=== PATIENT | female | born 1930 | race Caucasian/White ===

== ENCOUNTER 2020-01-22 19:17 | Inpatient (IN) ==
[2020-01-22] MEDS ORDERED: Acetaminophen 325 MG TABLET PO PRN (21:26)
[2020-01-22] MEDS ORDERED: Ondansetron 4 MG/2 ML VIAL IVP PRN (21:26)
[2020-01-22] MEDS ORDERED: Naloxone 0.4 MG/ML INJ IVP PRN (21:26)
[2020-01-22 22:52] LABS: BUN/Creatinine Ratio 44 (6-26); Blood Urea Nitrogen 31 mg/dL (8-23); Calcium 7.9 mg/dL (8.6-10.3); Carbon Dioxide 23 mEq/L (23-29); Chloride 103 mEq/L (98-107); Glucose 93 mg/dL (70-105); Osmolality,Calculated 280 (280-300); Potassium 3.3 mEq/L (3.5-5.1); Sodium 132 mEq/L (136-145); eGFR For African Americans > 60 (> 60); eGFR For Non-African Americans > 60 (> 60)
[2020-01-22 22:57] LABS: Adenovirus Not Detected (Not Detect); Bordetella Pertussis Not Detected (Not Detect); Chlamydophila pneumoniae Not Detected (Not Detect); Coronavirus 229E Not Detected (Not Detect); Coronavirus HKU1 Not Detected (Not Detect); Coronavirus NL63 Not Detected (Not Detect); Coronavirus OC43 Not Detected (Not Detect); Human Metapneumovirus Not Detected (Not Detect); Human Rhinovirus/Enterovirus Not Detected (Not Detect); Influenza A Subtype 2009 H1 Not Detected (Not Detect); Influenza B Not Detected (Not Detect); Mycoplasma pneumoniae Not Detected (Not Detect); Parainfluenza Virus 1 Not Detected (Not Detect); Parainfluenza Virus 2 Not Detected (Not Detect); Parainfluenza Virus 3 Not Detected (Not Detect); Parainfluenza Virus 4 Not Detected (Not Detect); Respiratory Syncytial Virus Not Detected (Not Detect)
[2020-01-22] MEDS ORDERED: Potassium Chloride Elixir 20 MEQ/15 ML UDC PO ONE (23:22)
[2020-01-23 01:28] LABS: Basophils % 0.1 %; Eosinophils % 0.1 %; Hematocrit 34.3 % (35.3-44.9); Hemoglobin 11.2 g/dL (11.5-15.4); Immature Granulocytes % 0.5 % (0-4); Lymphocytes % 12.9 %; Mean Corpuscular HGB Conc 32.7 g/dL (31.6-35.5); Mean Corpuscular Hemoglobin 31.1 pg (28.0-33.3); Mean Corpuscular Volume 95.3 fL (83.0-100.0); Mean Platelet Volume 11.1 fL (9.4-12.4); Monocytes # 0.5 K/mcL (0.0-1.3); Monocytes % 6.4 %; Neutrophils # 5.9 K/mcL (1.6-8.9); Platelet Count 216 K/mcL (140-400); Red Cell Distribution Width 13.8 % (11.5-14.5); White Blood Count 7.3 K/mcL (4.3-11.1)
[2020-01-23 01:54] LABS: Alanine Aminotransferase 32 Units/L (7-52); Albumin 2.6 g/dL (3.5-5.7); Albumin/Globulin Ratio 0.8 (1.1-2.2); Alkaline Phosphatase 37 Units/L (34-104); Aspartate Amino Transferase 43 Units/L (13-39); BUN/Creatinine Ratio 43 (6-26); Bilirubin,Total 0.5 mg/dL (0.3-1.0); Blood Urea Nitrogen 30 mg/dL (8-23); Calcium 8.1 mg/dL (8.6-10.3); Carbon Dioxide 22 mEq/L (23-29); Chloride 103 mEq/L (98-107); Globulin 3.2 g/dL (2.4-3.5); Glucose 86 mg/dL (70-105); Osmolality,Calculated 283 (280-300); Potassium 3.4 mEq/L (3.5-5.1); Sodium 134 mEq/L (136-145); Total Protein 5.8 g/dL (6.4-8.9); eGFR For African Americans > 60 (> 60); eGFR For Non-African Americans > 60 (> 60)
[2020-01-23] MEDS ORDERED: Dexamethasone 4 MG/ML VIAL IVP ONE (01:58)
[2020-01-23] MEDS ORDERED: Furosemide 20 MG/2 ML VIAL IVP ONE (01:59)
[2020-01-23 03:38] LABS: Bacteria,Urine Few per hpf (None-Few); Bilirubin,Urine Negative (Negative); Blood,Urine Negative (Negative); Clarity,Urine Clear (Clear); Color,Urine Yellow (Yellow); Glucose,Urine (UA) Normal (Normal); Hyaline Casts,Urine Few per lpf (None Seen); Ketones,Urine Negative (Negative); Leukocyte Esterase,Urine Negative (Negative); Mucus,Urine Few per lpf (None-Few); Nitrite,Urine Negative (Negative); PH,Urine 6.5 pH Units (5.0-8.0); Protein,Urine 30 mg/dL (Neg-Trace); Specific Gravity,Urine 1.025 (1.010-1.025); Squamous Epithelial Cell,Urine Few per hpf (None-Few); Urobilinogen,Urine Normal (Normal)
[2020-01-23 07:23] LABS: D-Dimer 509 ng/mLFEU (0-500)
[2020-01-23 07:26] LABS: Fibrinogen 948 mg/dL (169-393)
[2020-01-23] MEDS: Apixaban 2.5 MG TABLET PO SCH ×2 (07:50→21:04)
[2020-01-23] MEDS: hydrALAZINE 25 MG TABLET PO SCH ×3 (07:51→23:47)
[2020-01-23] MEDS: Azithromycin 500 MG in 0.9 % Sodium Chloride 250 ML IVPB SCH (07:51)
[2020-01-23] MEDS: Cyanocobalamin (B-12) 1,000 MCG TABLET PO SCH (07:52)
[2020-01-23] MEDS: Multivit/Ca/Min/Fe/FA 1 TAB TABLET PO SCH (07:52)
[2020-01-23] MEDS: lisinopriL 20 MG TABLET PO SCH (07:52)
[2020-01-23 08:00] LABS: Ferritin 1082 ng/mL (10-120); Lactate Dehydrogenase 272 Units/L (140-271)
[2020-01-23 08:24] LABS: C-Reactive Protein 172 mg/L (Less than 10)
[2020-01-23] MEDS: Piperacillin/Tazobactam 3.375 GM in 0.9 % Sodium Chloride Mini Bag 100 ML IVPB SCH ×3 (09:40→23:47)
[2020-01-24 03:13] LABS: Basophils % 0.1 %; Hematocrit 33.7 % (35.3-44.9); Hemoglobin 11.3 g/dL (11.5-15.4); Immature Granulocytes % 0.4 % (0-4); Lymphocytes # 0.6 K/mcL (0.6-4.6); Lymphocytes % 8.6 %; Mean Corpuscular HGB Conc 33.5 g/dL (31.6-35.5); Mean Corpuscular Hemoglobin 32.2 pg (28.0-33.3); Mean Platelet Volume 11.5 fL (9.4-12.4); Monocytes # 0.4 K/mcL (0.0-1.3); Monocytes % 6.1 %; Neutrophils # 5.9 K/mcL (1.6-8.9); Platelet Count 233 K/mcL (140-400); Red Blood Count 3.51 M/mcL (3.82-4.97); Red Cell Distribution Width 13.7 % (11.5-14.5); Segmented Neutrophils % 84.8 %; White Blood Count 6.9 K/mcL (4.3-11.1)
[2020-01-24 03:18] LABS: D-Dimer 592 ng/mLFEU (0-500); Fibrinogen 846 mg/dL (169-393)
[2020-01-24 03:41] LABS: BUN/Creatinine Ratio 48 (6-26); Blood Urea Nitrogen 44 mg/dL (8-23); Calcium 8.4 mg/dL (8.6-10.3); Carbon Dioxide 22 mEq/L (23-29); Chloride 104 mEq/L (98-107); Glucose 151 mg/dL (70-105); Osmolality,Calculated 296 (280-300); Potassium 3.5 mEq/L (3.5-5.1); Sodium 136 mEq/L (136-145); eGFR For African Americans > 60 (> 60); eGFR For Non-African Americans 58 (> 60)
[2020-01-24] MEDS: Multivit/Ca/Min/Fe/FA 1 TAB TABLET PO SCH (09:45)
[2020-01-24] MEDS: Apixaban 2.5 MG TABLET PO SCH ×2 (09:45→19:30)
[2020-01-24] MEDS: Cyanocobalamin (B-12) 1,000 MCG TABLET PO SCH (09:45)
[2020-01-24] MEDS: hydrALAZINE 25 MG TABLET PO SCH ×3 (09:45→23:06)
[2020-01-24] MEDS: lisinopriL 20 MG TABLET PO SCH (09:45)
[2020-01-24] MEDS: Azithromycin 500 MG in 0.9 % Sodium Chloride 250 ML IVPB SCH (09:46)
[2020-01-24] MEDS: Dexamethasone 4 MG/ML VIAL IVP SCH (09:46)
[2020-01-24] MEDS: Piperacillin/Tazobactam 3.375 GM in 0.9 % Sodium Chloride Mini Bag 100 ML IVPB SCH ×3 (12:06→23:06)
[2020-01-25 03:17] LABS: Basophils % 0.1 %; Hematocrit 34.2 % (35.3-44.9); Hemoglobin 11.4 g/dL (11.5-15.4); Immature Granulocytes % 0.5 % (0-4); Lymphocytes # 0.6 K/mcL (0.6-4.6); Lymphocytes % 5.9 %; Mean Corpuscular HGB Conc 33.3 g/dL (31.6-35.5); Mean Corpuscular Hemoglobin 32.1 pg (28.0-33.3); Mean Corpuscular Volume 96.3 fL (83.0-100.0); Mean Platelet Volume 11.1 fL (9.4-12.4); Monocytes # 0.5 K/mcL (0.0-1.3); Monocytes % 4.7 %; Neutrophils # 9.6 K/mcL (1.6-8.9); Platelet Count 239 K/mcL (140-400); Red Blood Count 3.55 M/mcL (3.82-4.97); Red Cell Distribution Width 13.8 % (11.5-14.5); Segmented Neutrophils % 88.8 %
[2020-01-25 03:18] LABS: White Blood Count 10.8 K/mcL (4.3-11.1)
[2020-01-25 03:35] LABS: BUN/Creatinine Ratio 46 (6-26); Blood Urea Nitrogen 35 mg/dL (8-23); Calcium 8.5 mg/dL (8.6-10.3); Carbon Dioxide 24 mEq/L (23-29); Chloride 107 mEq/L (98-107); Glucose 125 mg/dL (70-105); Osmolality,Calculated 297 (280-300); Potassium 3.3 mEq/L (3.5-5.1); Sodium 139 mEq/L (136-145); eGFR For African Americans > 60 (> 60); eGFR For Non-African Americans > 60 (> 60)
[2020-01-25] MEDS ORDERED: Furosemide 40 MG/4 ML VIAL IVP ONE (07:28)
[2020-01-25] MEDS: hydrALAZINE 25 MG TABLET PO SCH ×2 (07:50→16:50)
[2020-01-25] MEDS: Dexamethasone 4 MG/ML VIAL IVP SCH (07:50)
[2020-01-25] MEDS: lisinopriL 20 MG TABLET PO SCH (07:51)
[2020-01-25] MEDS: Cyanocobalamin (B-12) 1,000 MCG TABLET PO SCH (07:51)
[2020-01-25] MEDS: Apixaban 2.5 MG TABLET PO SCH ×2 (07:51→19:54)
[2020-01-25] MEDS: Multivit/Ca/Min/Fe/FA 1 TAB TABLET PO SCH (07:51)
[2020-01-25] MEDS: Azithromycin 500 MG in 0.9 % Sodium Chloride 250 ML IVPB SCH (07:52)
[2020-01-25] MEDS: Piperacillin/Tazobactam 3.375 GM in 0.9 % Sodium Chloride Mini Bag 100 ML IVPB SCH ×3 (11:57→23:59)
[2020-01-25] MEDS ORDERED: 0.9 % Sodium Chloride 250 ML ONE (15:46)
[2020-01-25] MEDS ORDERED: Doxycycline 100 MG in 0.9 % Sodium Chloride Mini Bag 100 ML IVPB SCH ×2 (18:00→23:00)
[2020-01-26 06:49] LABS: D-Dimer 1150 ng/mLFEU (0-500)
[2020-01-26 06:52] LABS: Basophils % 0.1 %; Hematocrit 31.1 % (35.3-44.9); Immature Granulocytes % 0.6 % (0-4); Lymphocytes # 0.7 K/mcL (0.6-4.6); Lymphocytes % 6.9 %; Mean Corpuscular HGB Conc 32.2 g/dL (31.6-35.5); Mean Corpuscular Volume 96.3 fL (83.0-100.0); Mean Platelet Volume 11.3 fL (9.4-12.4); Monocytes # 0.6 K/mcL (0.0-1.3); Platelet Count 230 K/mcL (140-400); Red Blood Count 3.23 M/mcL (3.82-4.97); Red Cell Distribution Width 13.7 % (11.5-14.5); Segmented Neutrophils % 86.4 %; White Blood Count 10.4 K/mcL (4.3-11.1)
[2020-01-26 06:56] LABS: Albumin 2.6 g/dL (3.5-5.7); Albumin/Globulin Ratio 0.9 (1.1-2.2); Bilirubin,Direct 0.2 mg/dL (0.0-0.2); Bilirubin,Indirect 0.5 mg/dL (0.0-1.0); Bilirubin,Total 0.7 mg/dL (0.3-1.0); Globulin 2.8 g/dL (2.4-3.5); Total Protein 5.4 g/dL (6.4-8.9)
[2020-01-26 06:57] LABS: BUN/Creatinine Ratio 53 (6-26); Blood Urea Nitrogen 38 mg/dL (8-23); Calcium 8.5 mg/dL (8.6-10.3); Carbon Dioxide 27 mEq/L (23-29); Chloride 108 mEq/L (98-107); Glucose 90 mg/dL (70-105); Osmolality,Calculated 301 (280-300); Potassium 3.4 mEq/L (3.5-5.1); Sodium 141 mEq/L (136-145); eGFR For African Americans > 60 (> 60); eGFR For Non-African Americans > 60 (> 60)
[2020-01-26 07:21] LABS: Fibrinogen 570 mg/dL (169-393)
[2020-01-26] MEDS ORDERED: Potassium Chloride Elixir 20 MEQ/15 ML UDC PO ONE (07:22)
[2020-01-26] MEDS ORDERED: Furosemide 40 MG/4 ML VIAL IVP ONE (07:22)
[2020-01-26] MEDS: Apixaban 2.5 MG TABLET PO SCH ×2 (09:24→22:11)
[2020-01-26] MEDS: lisinopriL 20 MG TABLET PO SCH (09:24)
[2020-01-26] MEDS: Multivit/Ca/Min/Fe/FA 1 TAB TABLET PO SCH (09:24)
[2020-01-26] MEDS: hydrALAZINE 25 MG TABLET PO SCH ×3 (09:24→15:56)
[2020-01-26] MEDS: Dexamethasone 4 MG/ML VIAL IVP SCH (09:25)
[2020-01-26] MEDS: Piperacillin/Tazobactam 3.375 GM in 0.9 % Sodium Chloride Mini Bag 100 ML IVPB SCH ×2 (09:30→15:57)
[2020-01-26] MEDS: Cyanocobalamin (B-12) 1,000 MCG TABLET PO SCH (09:34)
[2020-01-26] MEDS: Doxycycline 100 MG CAPSULE PO SCH ×2 (12:07→22:11)
[2020-01-26] MEDS ORDERED: 0.9 % Sodium Chloride 500 ML ONE (23:03)
[2020-01-27] MEDS: Piperacillin/Tazobactam 3.375 GM in 0.9 % Sodium Chloride Mini Bag 100 ML IVPB SCH ×4 (00:07→23:33)
[2020-01-27] MEDS: hydrALAZINE 25 MG TABLET PO SCH ×4 (00:07→23:34)
[2020-01-27 02:59] LABS: Basophils % 0.1 %; Hematocrit 31.3 % (35.3-44.9); Hemoglobin 10.4 g/dL (11.5-15.4); Immature Granulocytes % 0.4 % (0-4); Lymphocytes # 0.7 K/mcL (0.6-4.6); Lymphocytes % 7.2 %; Mean Corpuscular HGB Conc 33.2 g/dL (31.6-35.5); Mean Corpuscular Hemoglobin 32.4 pg (28.0-33.3); Mean Corpuscular Volume 97.5 fL (83.0-100.0); Mean Platelet Volume 11.4 fL (9.4-12.4); Monocytes # 0.5 K/mcL (0.0-1.3); Monocytes % 4.9 %; Neutrophils # 8.2 K/mcL (1.6-8.9); Platelet Count 223 K/mcL (140-400); Red Blood Count 3.21 M/mcL (3.82-4.97); Red Cell Distribution Width 13.8 % (11.5-14.5); Segmented Neutrophils % 87.4 %; White Blood Count 9.4 K/mcL (4.3-11.1)
[2020-01-27 03:20] LABS: BUN/Creatinine Ratio 47 (6-26); Blood Urea Nitrogen 34 mg/dL (8-23); Calcium 8.8 mg/dL (8.6-10.3); Carbon Dioxide 28 mEq/L (23-29); Chloride 105 mEq/L (98-107); Glucose 91 mg/dL (70-105); Osmolality,Calculated 297 (280-300); Potassium 3.7 mEq/L (3.5-5.1); Sodium 140 mEq/L (136-145); eGFR For African Americans > 60 (> 60); eGFR For Non-African Americans > 60 (> 60)
[2020-01-27] MEDS: Cyanocobalamin (B-12) 1,000 MCG TABLET PO SCH (07:49)
[2020-01-27] MEDS: Dexamethasone 4 MG/ML VIAL IVP SCH (07:49)
[2020-01-27] MEDS: Multivit/Ca/Min/Fe/FA 1 TAB TABLET PO SCH (07:49)
[2020-01-27] MEDS: Apixaban 2.5 MG TABLET PO SCH ×2 (07:49→19:40)
[2020-01-27] MEDS: lisinopriL 20 MG TABLET PO SCH (07:49)
[2020-01-27] MEDS: Doxycycline 100 MG CAPSULE PO SCH ×2 (07:49→19:40)
[2020-01-27] MEDS ORDERED: Furosemide 20 MG/2 ML VIAL IVP ONE (10:40)
[2020-01-27] MEDS ORDERED: Furosemide 40 MG/4 ML VIAL IVP ONE (11:14)
[2020-01-28 05:32] LABS: Basophils % 0.1 %; Eosinophils % 0.1 %; Hemoglobin 10.6 g/dL (11.5-15.4); Immature Granulocytes % 0.5 % (0-4); Lymphocytes % 11.1 %; Mean Corpuscular HGB Conc 33.1 g/dL (31.6-35.5); Mean Corpuscular Volume 96.7 fL (83.0-100.0); Mean Platelet Volume 10.9 fL (9.4-12.4); Monocytes # 0.5 K/mcL (0.0-1.3); Neutrophils # 7.7 K/mcL (1.6-8.9); Platelet Count 220 K/mcL (140-400); Red Blood Count 3.31 M/mcL (3.82-4.97); Red Cell Distribution Width 13.6 % (11.5-14.5); Segmented Neutrophils % 83.2 %; White Blood Count 9.2 K/mcL (4.3-11.1)
[2020-01-28 05:51] LABS: BUN/Creatinine Ratio 53 (6-26); Blood Urea Nitrogen 40 mg/dL (8-23); Calcium 9.1 mg/dL (8.6-10.3); Carbon Dioxide 30 mEq/L (23-29); Chloride 101 mEq/L (98-107); Glucose 86 mg/dL (70-105); Osmolality,Calculated 297 (280-300); Potassium 3.2 mEq/L (3.5-5.1); Sodium 139 mEq/L (136-145); eGFR For African Americans > 60 (> 60); eGFR For Non-African Americans > 60 (> 60)
[2020-01-28] MEDS: Doxycycline 100 MG CAPSULE PO SCH ×2 (07:46→20:37)
[2020-01-28] MEDS: hydrALAZINE 25 MG TABLET PO SCH ×3 (07:46→23:43)
[2020-01-28] MEDS: Apixaban 2.5 MG TABLET PO SCH ×2 (07:46→20:37)
[2020-01-28] MEDS: lisinopriL 20 MG TABLET PO SCH (07:46)
[2020-01-28] MEDS: Multivit/Ca/Min/Fe/FA 1 TAB TABLET PO SCH (07:46)
[2020-01-28] MEDS: Cyanocobalamin (B-12) 1,000 MCG TABLET PO SCH (07:46)
[2020-01-28] MEDS: Dexamethasone 4 MG/ML VIAL IVP SCH (07:47)
[2020-01-28] MEDS: Piperacillin/Tazobactam 3.375 GM in 0.9 % Sodium Chloride Mini Bag 100 ML IVPB SCH ×3 (07:48→23:43)
[2020-01-28] MEDS: Furosemide 20 MG/2 ML VIAL IVP SCH (09:27)
[2020-01-29 01:01] LABS: Hematocrit 34.2 % (35.3-44.9); Hemoglobin 11.4 g/dL (11.5-15.4); Immature Granulocytes % 0.6 % (0-4); Lymphocytes # 0.8 K/mcL (0.6-4.6); Lymphocytes % 9.3 %; Mean Corpuscular HGB Conc 33.3 g/dL (31.6-35.5); Mean Corpuscular Hemoglobin 32.4 pg (28.0-33.3); Mean Corpuscular Volume 97.2 fL (83.0-100.0); Mean Platelet Volume 10.8 fL (9.4-12.4); Monocytes # 0.5 K/mcL (0.0-1.3); Monocytes % 5.5 %; Neutrophils # 7.6 K/mcL (1.6-8.9); Platelet Count 228 K/mcL (140-400); Red Blood Count 3.52 M/mcL (3.82-4.97); Red Cell Distribution Width 13.6 % (11.5-14.5); Segmented Neutrophils % 84.6 %
[2020-01-29 01:10] LABS: Fibrinogen 556 mg/dL (169-393)
[2020-01-29 01:12] LABS: D-Dimer 1200 ng/mLFEU (0-500)
[2020-01-29 01:20] LABS: BUN/Creatinine Ratio 66 (6-26); Blood Urea Nitrogen 48 mg/dL (8-23); Carbon Dioxide 28 mEq/L (23-29); Chloride 102 mEq/L (98-107); Glucose 101 mg/dL (70-105); Osmolality,Calculated 303 (280-300); Potassium 3.9 mEq/L (3.5-5.1); Sodium 140 mEq/L (136-145); eGFR For African Americans > 60 (> 60); eGFR For Non-African Americans > 60 (> 60)
[2020-01-29] MEDS: Multivit/Ca/Min/Fe/FA 1 TAB TABLET PO SCH (09:51)
[2020-01-29] MEDS: Apixaban 2.5 MG TABLET PO SCH ×2 (09:51→21:16)
[2020-01-29] MEDS: Cyanocobalamin (B-12) 1,000 MCG TABLET PO SCH (09:51)
[2020-01-29] MEDS: lisinopriL 20 MG TABLET PO SCH (09:51)
[2020-01-29] MEDS: hydrALAZINE 25 MG TABLET PO SCH ×2 (09:51→15:20)
[2020-01-29] MEDS: Dexamethasone 4 MG/ML VIAL IVP SCH (09:51)
[2020-01-29] MEDS: levoFLOXacin 750 MG TABLET PO SCH (09:51)
[2020-01-29] MEDS: Furosemide 20 MG/2 ML VIAL IVP SCH (09:52)
[2020-01-29] MEDS ORDERED: Furosemide 20 MG/2 ML VIAL IVP ONE (18:00)
[2020-01-30] MEDS: hydrALAZINE 25 MG TABLET PO SCH ×3 (00:05→16:48)
[2020-01-30] MEDS: Apixaban 2.5 MG TABLET PO SCH ×2 (09:00→20:11)
[2020-01-30] MEDS: levoFLOXacin 750 MG TABLET PO SCH (09:00)
[2020-01-30] MEDS: Dexamethasone 4 MG/ML VIAL IVP SCH (09:00)
[2020-01-30] MEDS: Furosemide 20 MG/2 ML VIAL IVP SCH (09:00)
[2020-01-30] MEDS: Multivit/Ca/Min/Fe/FA 1 TAB TABLET PO SCH (09:00)
[2020-01-30] MEDS: Cyanocobalamin (B-12) 1,000 MCG TABLET PO SCH (09:00)
[2020-01-30] MEDS: lisinopriL 20 MG TABLET PO SCH (09:00)
[2020-01-31] MEDS: hydrALAZINE 25 MG TABLET PO SCH ×3 (00:16→15:18)
[2020-01-31 07:22] LABS: Basophils % 0.1 %; Eosinophils % 0.2 %; Hematocrit 37.7 % (35.3-44.9); Hemoglobin 12.3 g/dL (11.5-15.4); Immature Granulocytes % 0.8 % (0-4); Lymphocytes % 10.4 %; Mean Corpuscular HGB Conc 32.6 g/dL (31.6-35.5); Mean Corpuscular Hemoglobin 31.8 pg (28.0-33.3); Mean Corpuscular Volume 97.4 fL (83.0-100.0); Mean Platelet Volume 11.4 fL (9.4-12.4); Monocytes # 0.8 K/mcL (0.0-1.3); Monocytes % 8.2 %; Neutrophils # 7.4 K/mcL (1.6-8.9); Platelet Count 244 K/mcL (140-400); Red Blood Count 3.87 M/mcL (3.82-4.97); Red Cell Distribution Width 13.7 % (11.5-14.5); Segmented Neutrophils % 80.3 %; White Blood Count 9.2 K/mcL (4.3-11.1)
[2020-01-31] MEDS: Furosemide 20 MG/2 ML VIAL IVP SCH (07:40)
[2020-01-31] MEDS: lisinopriL 20 MG TABLET PO SCH (07:40)
[2020-01-31] MEDS: levoFLOXacin 750 MG TABLET PO SCH (07:40)
[2020-01-31] MEDS: Multivit/Ca/Min/Fe/FA 1 TAB TABLET PO SCH (07:40)
[2020-01-31] MEDS: Cyanocobalamin (B-12) 1,000 MCG TABLET PO SCH (07:40)
[2020-01-31 07:41] LABS: BUN/Creatinine Ratio 56 (6-26); Blood Urea Nitrogen 57 mg/dL (8-23); Calcium 9.4 mg/dL (8.6-10.3); Carbon Dioxide 31 mEq/L (23-29); Chloride 98 mEq/L (98-107); Glucose 83 mg/dL (70-105); Osmolality,Calculated 301 (280-300); Potassium 3.6 mEq/L (3.5-5.1); Sodium 138 mEq/L (136-145); eGFR For African Americans > 60 (> 60); eGFR For Non-African Americans 51 (> 60)
[2020-01-31] MEDS: Apixaban 2.5 MG TABLET PO SCH (07:41)
[2020-01-31 16:58] VITALS: BP 101/51
== END 2020-01-31 20:45 | disposition home health service (06) | DRG 177 ==
LOC: SUATTDRO 21:04 → INTOOBSV 21:04 → CDU 21:04 → 2NENU 01-23 00:38 → SUATTDRO 01-23 18:16
PROVIDERS: ADMIT Student in an Organized Health Care Education/Training Program; ATTEND Family Medicine